=== PATIENT | male | born 1995 | race Caucasian/White ===

== ENCOUNTER 2020-05-24 22:42 | Emergency (ER) | payer OTHER ==
[2020-05-24 22:51] VITALS: BMI 34.0
[2020-05-25] MEDS ORDERED: LORazepam 2 MG/ML SDV VIAL IVPUSH ONE (00:06)
[2020-05-25 00:38] VITALS: TEMP 98.3
[2020-05-25 00:44] VITALS: BP 144/72
[2020-05-25 00:46] VITALS: PULSE 88
== END 2020-05-25 00:48 | disposition home or self-care (01) ==
LOC: JER 22:42
DX: T40.8X1A Poisoning by lysergide [LSD], accidental (unintentional), initial encounter (principal)
CPT/HCPCS: 93005; 93010; 99283-25

== ENCOUNTER 2021-09-05 19:18 | Emergency (ER) | payer OTHER ==
[2021-09-05 19:41] VITALS: BP 127/73; RESP 18; TEMP 98.2; BMI 31.0
[2021-09-05 21:59] VITALS: PULSE 55
== END 2021-09-05 22:29 | disposition home or self-care (01) ==
LOC: JER 19:18 → JERFT 19:18
DX: R00.2 Palpitations (principal)
CPT/HCPCS: 71046-TC-FY; 93005; 93010; 99284-25